=== PATIENT | female | born 1995 | race Caucasian/White ===

== ENCOUNTER → 2019-08-31 | Outpatient (CLI) | payer OTHER | END | disposition home or self-care (01) | LOC: LAB 09:15 | PROVIDERS: ATTEND Obstetrics & Gynecology | DX: O09.90 Supervision of high risk pregnancy, unspecified, unspecified trimester (principal); Z3A.00 Weeks of gestation of pregnancy not specified | CPT/HCPCS: 36415; 82947; 82950 ==

== ENCOUNTER 2019-09-22 10:14 | Observation (INO) | payer OTHER ==
[2019-09-22] MEDS ORDERED: IV RINGERS,LACTATED 1000ML 1,000 ML IV SCH (10:23)
[2019-09-22] MEDS ORDERED: PENICILLIN G BENZATHINE LA 2,400,000 UNIT/4 ML DISP.SYRIN. IM ONE (10:45)
[2019-09-22 11:03] LABS: BILIRUBIN,URINE NEGATIVE (NEG); CLARITY,URINE CLOUDY; COLOR,URINE YELLOW; NITRITE,URINE NEGATIVE (NEG); PH,URINE 6.5 (<5.0-8.0); PROTEIN,URINE NEGATIVE (NEG-TRACE); UROBILINOGEN,URINE 0.2 mg/dL (0.2 mg/dL)
[2019-09-22 11:21] LABS: BACTERIA,URINE MANY /HPF (0-FEW); RBC,URINE OCC /HPF (0-2); SQUAMOUS EPITHELIAL CELL,UR MANY /LPF
== END 2019-09-22 12:43 | disposition home or self-care (01) ==
LOC: 3 SO LND 10:14
PROVIDERS: ADMIT Obstetrics & Gynecology; ATTEND Obstetrics & Gynecology
DX: O26.893 Other specified pregnancy related conditions, third trimester (principal); R76.8 Other specified abnormal immunological findings in serum; Z3A.36 36 weeks gestation of pregnancy
CPT/HCPCS: 81001; 87086; 96372; G0378; G0379; J0561

== ENCOUNTER 2019-09-27 20:41 | Observation (INO) | payer OTHER ==
[2019-09-27] MEDS ORDERED: IV RINGERS,LACTATED 1000ML 1,000 ML IV SCH (20:51)
[2019-09-27] MEDS ORDERED: ACETAMINOPHEN 325 MG TABLET. PO PRN (21:00)
[2019-09-27] MEDS ORDERED: ONDANSETRON PF 4 MG/2 ML VIAL. IVP PRN (21:00)
[2019-09-27 21:11] LABS: BILIRUBIN,URINE NEGATIVE (NEG); CLARITY,URINE CLEAR; COLOR,URINE YELLOW; NITRITE,URINE NEGATIVE (NEG); PH,URINE 6.5 (<5.0-8.0); PROTEIN,URINE NEGATIVE (NEG-TRACE); UROBILINOGEN,URINE 0.2 mg/dL (0.2 mg/dL)
[2019-09-27 21:18] LABS: BARBITURATES NEG (NEG); BENZODIAZEPINES NEG (NEG); CANNABINOIDS NEG (NEG); COCAINE NEG (NEG); METHADONE NEG (NEG); OPIATES NEG (NEG); PHENCYCLIDINE NEG (NEG)
[2019-09-27 21:19] LABS: AMPHETAMINE/METHAMPHETAMINE NEG (NEG)
[2019-09-27 21:21] LABS: BACTERIA,URINE MANY /HPF (0-FEW); RBC,URINE OCC /HPF (0-2); SQUAMOUS EPITHELIAL CELL,UR MANY /LPF; WBC,URINE 20-40 /HPF (0-4)
== END 2019-09-27 23:19 | disposition home or self-care (01) ==
LOC: 3 SO LND 20:41 → EEVIPCON 20:41
PROVIDERS: ADMIT Obstetrics & Gynecology; ATTEND Obstetrics & Gynecology
DX: O62.9 Abnormality of forces of labor, unspecified (principal); O26.893 Other specified pregnancy related conditions, third trimester; R10.2 Pelvic and perineal pain; Z3A.36 36 weeks gestation of pregnancy
CPT/HCPCS: 80307; 81001; 87086; G0378; G0379

== ENCOUNTER 2019-09-29 14:26 | Observation (INO) | payer OTHER ==
[2019-09-29] MEDS ORDERED: PENICILLIN G BENZATHINE LA 2,400,000 UNIT/4 ML DISP.SYRIN. IM ONE (14:45)
== END 2019-09-29 15:13 ==
LOC: EEVIPCON 14:26 → 3 SO LND 14:26
PROVIDERS: ADMIT Obstetrics & Gynecology; ATTEND Obstetrics & Gynecology
DX: O62.9 Abnormality of forces of labor, unspecified (principal); O26.853 Spotting complicating pregnancy, third trimester; Z3A.37 37 weeks gestation of pregnancy
CPT/HCPCS: 96372; G0378; G0379; J0561

== ENCOUNTER 2019-10-05 09:29 | Observation (INO) | payer OTHER ==
[2019-10-05] MEDS ORDERED: PENICILLIN G BENZATHINE LA 2,400,000 UNIT/4 ML DISP.SYRIN. IM ONE (09:45)
== END 2019-10-05 11:16 ==
LOC: EEVIPCON 09:29 → 3 SO LND 09:29
PROVIDERS: ADMIT Obstetrics & Gynecology; ATTEND Obstetrics & Gynecology
DX: Z34.93 Encounter for supervision of normal pregnancy, unspecified, third trimester (principal); Z3A.38 38 weeks gestation of pregnancy
CPT/HCPCS: 96372; G0378; G0379; J0561

== ENCOUNTER 2019-10-08 03:05 | Inpatient (IN) | payer OTHER ==
[~2019-10-08] VITALS: Ht 165.1 cm; Wt 81.2 kg
[2019-10-08 03:38] LABS: BILIRUBIN,URINE NEGATIVE (NEG); CLARITY,URINE CLEAR; COLOR,URINE YELLOW; NITRITE,URINE NEGATIVE (NEG); PH,URINE 6.5 (<5.0-8.0); PROTEIN,URINE NEGATIVE (NEG-TRACE)
[2019-10-08 03:46] LABS: SQUAMOUS EPITHELIAL CELL,UR MANY /LPF
[2019-10-08 03:47] LABS: BACTERIA,URINE FEW /HPF (0-FEW); RBC,URINE 0 /HPF (0-2); YEAST,URINE PRESENT /HPF
[2019-10-08 03:49] LABS: AMNIO PT POSITIVE
[2019-10-08] MEDS ORDERED: TERBUTALINE 1 MG/ML VIAL. SQ PRN (04:00)
[2019-10-08] MEDS ORDERED: 0.9 % SODIUM CHLORIDE 10 ML DISP.SYRIN. IV PRN ×2 (04:00→18:30)
[2019-10-08] MEDS ORDERED: ACETAMINOPHEN 325 MG TABLET. PO PRN ×2 (04:00→18:30)
[2019-10-08] MEDS ORDERED: IV RINGERS,LACTATED 1000ML 1,000 ML IV PRN (04:00)
[2019-10-08] MEDS ORDERED: LIDOCAINE 1% PF 30 ML VIAL. INJ PRN (04:00)
[2019-10-08] MEDS ORDERED: fentaNYL PF VIAL 100 MCG/2 ML VIAL IVP PRN (04:00)
[2019-10-08] MEDS ORDERED: OXYTOCIN 30 UNIT/500 ML PREMIX 500 ML IV PRN ×2 (04:00→18:30)
[2019-10-08] MEDS ORDERED: IBUPROFEN 400 MG TABLET. PO PRN (04:00)
[2019-10-08] MEDS ORDERED: MAG HYDROX/ALUMINUM HYD/SIMETH 30 ML ORAL.SUSP PO PRN ×2 (04:00→18:30)
[2019-10-08] MEDS ORDERED: ONDANSETRON PF 4 MG/2 ML VIAL. IVP PRN (04:00)
[2019-10-08] MEDS: IV RINGERS,LACTATED 1000ML 1,000 ML IV SCH ×2 (04:40→09:10)
[2019-10-08 04:46] LABS: BASO % 0 % (0-3); EOS # 0.1 x10^3/uL (0.0-0.7); EOS % 1 % (0-3); HEMATOCRIT 32.6 % (36.0-47.0); HEMOGLOBIN 11.3 g/dL (12.0-15.5); LYMPH # 2.4 x10^3/uL (1.0-4.8); LYMPH % 25 % (24-48); MEAN CORPUSCULAR HEMOGLOBIN 34 pg (25-35); MEAN CORPUSCULAR HGB CONC 35 g/dL (31-37); MEAN CORPUSCULAR VOLUME 97 fL (79-100); MONO # 0.6 x10^3/uL (0.0-1.1); MONO % 6 % (0-9); NEUT # 6.6 x10^3/uL (1.8-7.7); NEUT % 68 % (31-73); PLATELET COUNT 131 x10^3/uL (140-400); RED BLOOD COUNT 3.35 x10^6/uL (3.50-5.40); RED CELL DISTRIBUTION WIDTH 13.4 % (11.5-14.5); WHITE BLOOD COUNT 9.7 x10^3/uL (4.0-11.0)
[2019-10-08] MEDS ORDERED: OXYTOCIN 30 UNIT/500 ML PREMIX 500 ML IV ONE (05:00)
[2019-10-08 05:03] VITALS: BP 120/79
[2019-10-08 05:42] LABS: ALBUMIN/GLOBULIN RATIO 0.6 (1.0-1.7); CALCIUM 8.4 mg/dL (8.5-10.1); CREATININE 0.4 mg/dL (0.6-1.0); GFR 194.5; POTASSIUM 3.4 mmol/L (3.5-5.1); TOTAL BILIRUBIN 0.3 mg/dL (0.2-1.0); TOTAL PROTEIN 5.6 g/dL (6.4-8.2)
[2019-10-08] MEDS ORDERED: IV RINGERS,LACTATED 1000ML 1,000 ML IV ONE (10:28)
[2019-10-08] MEDS ORDERED: NALOXONE 0.4 MG/ML VIAL. IV PRN (10:30)
[2019-10-08] MEDS ORDERED: ONDANSETRON PF 4 MG/2 ML VIAL. IV PRN (10:30)
[2019-10-08] MEDS ORDERED: ePHEDrine PF IN SALINE 50 MG/10 ML SYRINGE. IV PRN (10:30)
[2019-10-08] MEDS ORDERED: ROPIVacaine 0.2% PF 10 ML VIAL. ONE ×2 (10:31)
--- NOTE | 2019-10-08 10:34 | PDOC1 ---
OB - History Hx of Present Care: Good Care Ultrasounds: Normal mid trimester US Obstetrical Complications: None Medical Complications: Other (Recent treatment for Syphilis. Completed all 3 doses of penicillin.) Past Family/Social History * Past Medical, Surgical, Family and Obstetric Histories reviewed from chart. Rubella: Immune RPR/VDRL: Negative GBS Status: Negative HBsAG: Negative OB - Chief Complaint & HPI Date of Admission: Date of Admission: Oct 08, 2019 at 03:05 Chief Complaint/History : 3 Para: 2 EGA: 38 Reason for admission: active labor, rupture of membranes Admission Nurse Assessment Rev: Yes OB - Admission Exam Physical Exam Vitals: VS - Last 72 Hours, by Label Date Time Temp Pulse Resp B/P (MAP) Pulse Ox O2 Delivery O2 Flow Rate FiO2 10/08/19 05:03 98.2 84 18 120/79 (93) 97 Room Air 98.2 HEENT: Normal Heart: Regular Rate Lungs: Clear Abdomen: Gravid, Non tender, Soft Extremities: Edema Reflexes: Normal Cervical Dilatation: 3cm Effacement: 75% Station: -3 Membranes: Ruptured Amniotic Fluid: Clear Heart Rate: Normal Accelerations: Accelerations Present Decelerations: No decelerations Contractions on Admission: 6-10 Minutes Apart Text A: 38 wks IUP SROM Recent h/o Syphilis: completed treatment P: Admit labor management. Start Pitocin augmentation. WHIT LI Jr, MD Oct 08, 2019 10:34
[2019-10-08] MEDS: L&D EPIDURAL SYRINGE 50 ML EPID PRN ×2 (10:44→14:03)
--- NOTE | 2019-10-08 18:18 | PDOC ---
VAGINAL DELIVERY DATE DATE: 10/08/19 TIME: 18:17 : 3 Para: 3 EGA: 38 VAGINAL DELIVERY: VTX VACCUM ASSISTED: No PLACENTA: Spontaneous 8/9 SEX: Female WEIGHT Weight [ 3430 gm] Nuchal Cord: Yes, Times 1 Amniotic Fluid: Clear PAIN: Epidural EPISIOTOMY: No EXTENSION: No EBL 300 ml COMPLICATIONS none CONDITION pt. stable Signs of Intrauterine Infectio: None Shoulder Dystocia: No WHIT LI Jr, MD Oct 08, 2019 18:18
[2019-10-08] MEDS ORDERED: diphenhydrAMINE HCL 25 MG CAPSULE PO PRN (18:30)
[2019-10-08] MEDS ORDERED: TDaP (Adacel) per PROTOCOL. MC PRN (18:30)
[2019-10-08] MEDS ORDERED: BENZOCAINE 20% TOPICAL AEROSOL SPRAY 57GM CAN. TP PRN (18:30)
[2019-10-08] MEDS ORDERED: MAGNESIUM HYDROXIDE 2,400 MG/30 ML ORAL.SUSP. PO PRN (18:30)
[2019-10-08] MEDS ORDERED: MMR per PROTOCOL. MC PRN (18:30)
[2019-10-08] MEDS ORDERED: HYDROCORTISONE 1% TOPICAL OINTMENT 30GM TUBE. TP PRN (18:30)
[2019-10-08] MEDS ORDERED: ZOLPIDEM 5 MG TABLET. PO PRN (18:30)
[2019-10-08] MEDS ORDERED: SIMETHICONE 80 MG TAB.CHEW PO PRN (18:30)
[2019-10-08] MEDS ORDERED: PHENYLEPH/MINERAL OIL/PETROLAT RECTAL OINTMENT TUBE. RC PRN (18:30)
[2019-10-08] MEDS: IBUPROFEN 400 MG TABLET. PO PRN (19:58)
[2019-10-08 20:35] VITALS: BP 117/61
[2019-10-08] MEDS: oxyCODONE/APAP 5/325 1 TAB TABLET PO PRN (20:48)
[2019-10-08] MEDS: DOCUSATE SODIUM 100 MG CAPSULE. PO PRN (20:48)
[2019-10-08 21:40] VITALS: BP 129/74
[2019-10-09 01:05] VITALS: BP 138/80
[2019-10-09] MEDS: IBUPROFEN 400 MG TABLET. PO PRN ×3 (03:13→17:58)
[2019-10-09 06:15] VITALS: BP 111/68
[2019-10-09] MEDS: oxyCODONE/APAP 5/325 1 TAB TABLET PO PRN ×3 (06:27→19:31)
[2019-10-09] MEDS ORDERED: FERROUS SULFATE 325 MG TABLET. PO SCH (08:00)
[2019-10-09 08:31] LABS: BASO # 0.1 x10^3/uL (0.0-0.2); BASO % 1 % (0-3); EOS # 0.1 x10^3/uL (0.0-0.7); EOS % 1 % (0-3); HEMATOCRIT 37.4 % (36.0-47.0); HEMOGLOBIN 12.8 g/dL (12.0-15.5); LYMPH # 2.4 x10^3/uL (1.0-4.8); LYMPH % 23 % (24-48); MEAN CORPUSCULAR HEMOGLOBIN 33 pg (25-35); MEAN CORPUSCULAR HGB CONC 34 g/dL (31-37); MEAN CORPUSCULAR VOLUME 97 fL (79-100); MONO # 0.4 x10^3/uL (0.0-1.1); MONO % 4 % (0-9); NEUT # 7.2 x10^3/uL (1.8-7.7); NEUT % 72 % (31-73); PLATELET COUNT 158 x10^3/uL (140-400); RED BLOOD COUNT 3.85 x10^6/uL (3.50-5.40); RED CELL DISTRIBUTION WIDTH 13.4 % (11.5-14.5); WHITE BLOOD COUNT 10.1 x10^3/uL (4.0-11.0)
[2019-10-09 10:20] LABS: PLT ESTIMATE ADEQUATE (ADEQUATE)
[2019-10-09] MEDS: MULTIVITAMIN with MINERAL TABLET. PO SCH (10:37)
[2019-10-09] MEDS: DOCUSATE SODIUM 100 MG CAPSULE. PO PRN ×2 (10:38→17:58)
[2019-10-09 11:00] VITALS: BP 118/76
--- NOTE | 2019-10-09 11:50 | PDOC3 ---
OB DISCHARGE SUMMARY DATE OF ADMISSION: 10/08/19 DATE OF DISCHARGE: REASON FOR ADMISSION: Onset of labor INTRAPARTUM PROCEDURES: Spontanous Vag Deliv DISCHARGE DIAGNOSIS: Term Delivered DISCHARGE INFORMATION: Activity (ad kei), Diet (regular), Instructions (pelvic rest x 6 wks) HOSPITAL COURSE Term gestation delivered vaginally without complications. WHIT LI Jr, MD Oct 09, 2019 11:50
[2019-10-09] MEDS ORDERED: IBUP-1027 PO (11:51)
--- NOTE | 2019-10-09 11:52 | DISCH ---
DISCHARGE INSTRUCTIONS Condition on Discharge Condition on Discharge: Stable Activity After Discharge Activity Instructions for Disc: Activity as tolerated Lifting Instructions after Dis: No heavy lifting Driving Instructions after Dis: Do not drive today Diet after Discharge Diet after Discharge: Regular Contacting the DRBarron after DC Call your doctor for: Concerns you may have Follow-Up Follow up with: Dr. Palma in 6 wks WHIT PALMA Jr, MD Oct 09, 2019 11:52
[2019-10-09 18:35] VITALS: BP 130/63
[2019-10-09] MEDS: SERTRALINE 50 MG TABLET. PO SCH (19:32)
[2019-10-09 22:15] VITALS: BP 129/86
[2019-10-10] MEDS: oxyCODONE/APAP 5/325 1 TAB TABLET PO PRN ×2 (01:48→06:32)
[2019-10-10] MEDS ORDERED: LOPERAMIDE 2 MG/15 ML ORAL SUSP. PEG PRN (02:00)
[2019-10-10 04:10] VITALS: BP 117/70
[2019-10-10] MEDS: IBUPROFEN 400 MG TABLET. PO PRN (10:05)
[2019-10-10] MEDS: SERTRALINE 50 MG TABLET. PO SCH (10:05)
[2019-10-10] MEDS: MULTIVITAMIN with MINERAL TABLET. PO SCH (10:05)
--- NOTE | 2019-10-10 10:30 | NUR ---
SS following up with referral regarding "Mother incarcerated. Last meth use 01/13/2019. Grandmother and cousin have custody of two other children. Mother needing notary." SS discussed with mother RN. Mother incarcerated at [facility]. SS met with mother and guard in room. Mother provided special power of small parts shaper operator paperwork and financial responsibility paperwork assigning Shira Wilkins cousin as temporary industrial custodian of infant. Special power of small parts shaper operator paperwork signed and notarized. Shira Wilkins to come to hospital at 1300 to meet with SS to complete, sign, and notarize financial responsibility paperwork. SS made Shira aware of hospital screening policy and visitor policy for . SS notified mother of visitor policy as well. SS contacted nurse platform mill supervisor and had Shira Wilkins added to visitor list for . Mother and nursery RN notified. Copies of special power of small parts shaper operator placed in mother and chart. SS will meet with Ms. Wilkins at 1300 to complete other paperwork.
[2019-10-10 10:45] VITALS: BP 118/68
--- NOTE | 2019-10-10 13:26 | NUR ---
SS following up. SS met with mothers cousin, Shira Wilkins, and financial responsibility form was signed and notarized. SS provided Shira with copy of Power of [employer] and Financial Responsibility form. Shira meeting with [place] from [facility] to assist with medicaid application for infant. RN notified and provided with copy of Financial Responsibility form. SS will continue to follow as needed.
--- NOTE | 2019-10-10 13:42 | NUR ---
after delivery care instructions given to tp with ibuprofen and zoloft script. no questions asked
--- NOTE | 2019-10-10 14:04 | NUR ---
arsalan gallego to [facility] demurrage clerk on Ms Erickson
--- NOTE | 2019-10-10 14:05 | NUR ---
report given to health center at [facility] on pt care and after care instructions
[2019-10-10 14:09] VITALS: BP 120/74
[2019-10-10] MEDS ORDERED: ZOLPIDEM 5 MG TABLET. PO PRN (19:30)
== END 2019-10-10 14:17 | disposition home or self-care (01) | DRG 807 ==
LOC: 3 SO LND 03:05 → OBSVTOIN 03:05 → EEVIPCON 03:05 → 3 NORTH 20:40
PROVIDERS: ADMIT Obstetrics & Gynecology; ATTEND Obstetrics & Gynecology
PROC: 10E0XZZ Delivery of Products of Conception, External Approach (ICD-10-PCS; principal; 2019-10-08)
PROC: 00HU33Z Insertion of Infusion Device into Spinal Canal, Percutaneous Approach (ICD-10-PCS; 2019-10-08)
PROC: 3E0R3BZ Introduction of Anesthetic Agent into Spinal Canal, Percutaneous Approach (ICD-10-PCS; 2019-10-08)
DX: O69.81X0 Labor and delivery complicated by cord around neck, without compression, not applicable or unspecified (principal); Z37.0 Single live birth; Z3A.38 38 weeks gestation of pregnancy; O42.92 Full-term premature rupture of membranes, unspecified as to length of time between rupture and onset of labor
CPT/HCPCS: 36415; 80053; 81001; 84112; 85025; 86592; 86850; 86900; 86901; 87086; J2590; J2795; J3010; J7120; G0378